=== PATIENT | male | born 1935 | race Caucasian/White ===

== ENCOUNTER 2018-09-07 04:44 | Emergency (ER) | payer MEDICARE ==
[~2018-09-07] VITALS: Ht 170.2 cm; Wt 90.7 kg
[~2018-09-07 04:44] MED LIST: ASPIR 8181 MG PO; BRILINTA90 MG PO; CARVEDILOL12.5 MG PO; CARVEDILOL3.125 MG PO; COLACE100 MG PO; LIPITOR 20 MG T20 M1 PO; LISINOPRIL20 MG PO; NITROSTAT0.4 M1 SUBLING; PLAVIX 75 MG TA75 MG PO; PRILOSEC OTC20 MG PO; PRINIVIL10 MG PO
[2018-09-07] MEDS ORDERED: FLEXERIL PO (05:13)
[2018-09-07] MEDS ORDERED: NORCO 5-325 TA1 EAC1 PO (05:13)
[2018-09-07 06:22] VITALS: BP 147/66
--- NOTE | 2018-09-08 10:51 | EKG ---
[place] [address] ELECTROCARDIOGRAM REPORT Name: REGIS HAJI [id number] Admission: 09/07/18 Attend Phys: Discharge: 09/07/18 Date of : 37 Report #: [id number] THIS REPORT FOR: //name// [facility] ED Test Date: 2018-09-07 Test Time: 05:00:08 Pat Name: REGIS HAJI Department: Room: Gender: M Associate Business Analyst: [place] : 1935 Requested By: Bolivar Victoria Order Number: [id number] MD: Juan Jose Palomino Measurements Intervals [place] Rate: 70 P: 45 MD: 186 QRS: -7 QRSD: 95 T: -22 QT: 373 QTc: 403 Interpretive Statements Sinus rhythm Inferior infarct, age indeterminate Compared to ECG 09/02/2018 07:52:16 No significant changes Electronically Signed On 09-08-2018 10:51:03 CDT by Juan Jose Palomino [email or web address] <ELECTRONICALLY SIGNED> By: Juan Jose Palomino MD, [facility] 09/08/18 1051 0500 0500 Juan Jose Palomino MD, FACC /EPI
== END 2018-09-07 06:24 | disposition home or self-care (01) ==
LOC: M.ERS 04:44
DX: M43.6 Torticollis (principal); I10 Essential (primary) hypertension; E78.00 Pure hypercholesterolemia, unspecified; Z95.5 Presence of coronary angioplasty implant and graft

== ENCOUNTER → 2018-09-09 | Outpatient (CLI) | payer MEDICARE ==
[~2018-09-09] MED LIST changes: +FLEXERIL PO; +NORCO 5-325 TA1 EAC1 PO
== END ==
LOC: M.RAD 12:52
DX: M47.812 Spondylosis without myelopathy or radiculopathy, cervical region (principal); M43.12 Spondylolisthesis, cervical region

== ENCOUNTER → 2018-09-18 | Outpatient (CLI) | payer MEDICARE | LOC: M.MRI 16:37 | DX: M50.121 Cervical disc disorder at C4-C5 level with radiculopathy (principal); M47.22 Other spondylosis with radiculopathy, cervical region; M48.02 Spinal stenosis, cervical region; M43.12 Spondylolisthesis, cervical region; Z79.82 Long term (current) use of aspirin; Z79.899 Other long term (current) drug therapy ==

== ENCOUNTER → 2018-10-20 | Outpatient (CLI) | payer MEDICARE ==
[~2018-10-20] MED LIST changes: +PLAVIX 75 MG TA75 M1 PO; +ZANAFLEX4 MG PO
== END ==
LOC: M.PC 00:14
DX: M43.12 Spondylolisthesis, cervical region (principal); M48.02 Spinal stenosis, cervical region; M25.519 Pain in unspecified shoulder

== ENCOUNTER → 2019-03-18 | Outpatient (CLI) | payer MEDICARE ==
--- NOTE | 2019-03-18 17:57 | CARDNUC ---
[place] [address] CARDIAC NUCLEAR IMAGING REPORT Name: REGIS HAJI Room: [facility]#: [id number] Admission: 03/18/19 Attend Phys: Chandu Coburn Discharge: Date of : 37 Date of Service: 03/18/19 1756 Report #: [id number] THIS REPORT FOR: //name// APPROVED REPORT Study performed: 03/18/2019 14:21:02 Exam: Nuclear Stress Test Indication: s/p stent Patient Location: Out-Patient Stress Tech: Poonam Rao Stress Nurse: Diana Turner RN NM Tech:HOLDEN Christianson Ht: 5 ft 7 in Wt: 196 lbs BSA: 2.00 m2 BMI: 30.69 Medical History Medical History: mi, cad, hyperlipidemia, hypertension Medications: asa-81, atorvastatin, carvedilol, lisinopril, brilinta Allergies: levofloxacin Cardiac Risk Factors: Age, FHX of CAD, HTN, Hyperlipidemia, Tobacco History (Former) Previous Cardiac Procedures: pci Exercise History: Physically active Meds Held (24 hrs): carvedilol Stress Test Details Stress Test: Pharmacologic stress testing performed using 0.4 mg of regadenoson per 5 mL given IV over 10 seconds. HR Resting HR: 70 bpm Max Heart Rate (APMHR): 138 bpm Max HR Achieved: 94 bpm Target HR (85% APMHR): 117 bpm % of APMHR: 68 Recovery HR: 90 bpm BP Resting BP: 157/91 mmHg Max BP: 170/85 mmHg ECG Resting ECG: Sinus Rhythm, nons[place] [address] CARDIAC NUCLEAR IMAGING REPORT Name: REGIS HAJI Room: [facility]#: [id number] Admission: 03/18/19 Attend Phys: Chandu Coburn Discharge: Date of : 37 Date of Service: 03/18/19 1756 Report #: [id number] Stress ECG: Sinus Rhythm, nonspecific ST-T abnormalities ST Change: None Arrhythmia: VPC's Recovery ECG: Sinus Rhythm, nonspecific ST-T abnormalities Recovery ST Change: None Recovery Arrhythmia: VPC's Clinical Reason for Termination: Completed protocol Exercise duration: 0 min sec Exercise capacity: 1 METs The patient tolerated Lexiscan infusion without significant cardiac symptoms. Stress ECG Conclusion The baseline 12-lead EKG shows sinus rhythm with nonspecific ST segment depression and T-wave inversion. There were frequent premature ventricular contractions. EKGs obtained during and post Lexiscan infusion show sinus rhythm with continued nonspecific ST segment and T-wave abnormalities as well as continued (premature ventricular contractions. NM EXAM: Myocardial Perfusion REST/STRESS Imaging Protocol: Rest Tc-99m/Stress Tc-99m 1 day Resting Data Rest SPECT myocardial perfusion imaging was performed in supine position 30 minutes following the intravenous injection of 10.7 mCi of Tc-99m Sestamibi. Time of rest injection: 1305 Date: 03/18/2019 The images were gated to evaluate regional wall motion and calculate left ventricular ejection fraction. Administration Route: IV Administration Site: Right AC Pharmacologic Stress Pharmacologic stress test was performed by injecting Regadenoson 0.4 mg IV push followed by the intravenous injection of 35.0 mCi of Tc-99m Sestamibi. Time of stress injection: 1415 Date: 03/18/2019 Administration Route: IV Administration Site: Right AC Gated Stress SPECT was performed 40 minutes after stress injection. The images were gated to evaluate regional [place] [address] CARDIAC NUCLEAR IMAGING REPORT Name: REGIS HAJI Room: [facility]#: [id number] Admission: 03/18/19 Attend Phys: Chandu Coburn Discharge: Date of : 37 Date of Service: 03/18/19 1756 Report #: [id number] left ventricular ejection fraction. Prone imaging was performed. Study Quality Study: Good Artifact: Mild Diaphragmatic artifact Study Data At rest, the left ventricular ejection fraction was 64%.. Post stress, the left ventricular ejection was 80%.. TID = 1.00. Perfusion Perfusion images obtained in the supine position some photopenia involving the inferior wall that resolved with post stress prone imaging suggesting diaphragmatic attenuation artifact. No other significant fixed or reversible defects were identified. Wall Motion Normal left ventricular wall motion. Nuclear Conclusion ECG Findings: negative for ischemia Clinical Findings: negative for ischemia Nuclear Findings: negative for ischemia Exercise Capacity: not assessed Left Ventricular Function: normal Risk Study: low Myocardial perfusion images showed no defect to suggest infarct or ischemia. Global LV systolic function is normal on repeat studies. This is a low risk study. <Conclusion> The baseline 12-lead EKG shows sinus rhythm with nonspecific ST segment depression and T-wave inversion. There were frequent premature ventricular contractions. EKGs obtained during and post Lexiscan infusion show sinus rhythm with continued nonspecific ST segment and T-wave abnormalities as well as continued (premature ventricular contractions. <ELECTRONICALLY SIGNED> By: Jr Cavazos MD, FACC 03/18/191755 55 55 Jr Cavazos MD, FACC /INF
== END ==
LOC: M.NUC 12-01 17:37
DX: I25.10 Atherosclerotic heart disease of native coronary artery without angina pectoris (principal); I25.2 Old myocardial infarction; E78.5 Hyperlipidemia, unspecified; I10 Essential (primary) hypertension; Z95.5 Presence of coronary angioplasty implant and graft; Z79.82 Long term (current) use of aspirin; Z79.899 Other long term (current) drug therapy

== ENCOUNTER → 2019-08-18 | Outpatient (CLI) | payer MEDICARE ==
--- NOTE | 2019-08-18 14:41 | 2DMMODE ---
[place] [address] 2 D/M-MODE ECHOCARDIOGRAM Name: RAISSAREGIS Demetris Room: [facility].#: [id number] Admission: 08/18/19 Attend Phys: Chandu Coburn Discharge: Date of : 37 Date of Service: 08/18/19 1440 Report #: [id number] THIS REPORT FOR: cc: Domingo Baum Vincent R. DO Blick,Juan Jose Cm MD [facility] ~ APPROVED REPORT Study performed: 08/18/2019 13:36:30 EXAM: Comprehensive 2D, Doppler, and color-flow Echocardiogram Patient Location: Out-Patient BSA: 2.02 HR: 63 bpm BP: 142/78 mmHg Other Information Study Quality: Fair Indications CAD Hypertension/HDD 2D Dimensions IVSd: 11.25 (7-11mm) LVOT Diam: 19.62 (18-24mm) LVDd: 43.29 mm PWd: 9.77 (7-11mm) Ascending Ao: 26.03 (22-36mm) LVDs: 23.98 (25-40mm) Aortic Root: 24.61 mm Volumes Left Atrial Volume (Systole) LA ESV Index: 16.30 mL/m2 Aortic Valve AoV Peak Chauncey.: 1.41 m/s AO Peak Gr.: 7.97 mmHg LVOT Max P.64 mmHg AO Mean Gr.: 4.66 mmHg LVOT Mean P.30 mmHg LVOT Max V: 1.08 m/s AO V2 VTI: 34.32 cm LVOT Mean V: 0.69 m/s DARYL (VTI): 2.25 cm2 LVOT V1 VTI: 25.58 [place] [address] 2 D/M-MODE ECHOCARDIOGRAM Name: REGIS HAJI Room: [facility]#: [id number] Admission: 08/18/19 Attend Phys: Chandu Coburn Discharge: Date of : 37 Date of Service: 08/18/19 1440 Report #: [id number] E/A Ratio: 0.70 MV Decel. Time: 213.41 ms MV E Max Chauncey.: 0.66 m/s MV PHT: 61.89 ms MVA (PHT): 3.55 cm2 TDI E/Lateral E': 6.60 E/Medial E': 6.60 Medial E' Chauncey.: 0.10 m/s Lateral E' Chauncey.: 0.10 m/s Pulmonary Valve PV Peak Chauncey.: 0.92 m/s PV Peak Gr.: 3.36 mmHg Left Ventricle The left ventricle is normal size. There is normal LV segmental wall motion. There is normal left ventricular wall thickness. Left ventricular systolic function is normal. The left ventricular ejection fraction is within the normal range. LVEF is 55-60%. Grade I - abnormal relaxation pattern. Right Ventricle The right ventricle is normal size. The right ventricular systolic function is normal. Atria The left atrium size is normal. The right atrium size is normal. Aortic Valve The aortic valve is normal in structure. No aortic regurgitation is present. There is no aortic valvular stenosis. Mitral Valve The mitral valve is normal in structure. There is trace mitral valve regurgitation noted. No evidence of mitral valve stenosis. Tricuspid Valve The tricuspid valve is normal in structure. There is no tricuspid valve regurgitation noted. Pulmonic Valve Pulmonic valve is not well visualized. There is no pulmonic valvular regurgitation[place] [address] 2 D/M-MODE ECHOCARDIOGRAM Name: REGIS HAJI Room: [facility]#: [id number] Admission: 08/18/19 Attend Phys: Chandu Coburn Discharge: Date of : 37 Date of Service: 08/18/19 1440 Report #: [id number] The aortic root is normal in size. IVC is normal in size and collapses >50% with inspiration. Pericardium There is no pericardial effusion. <Conclusion> Left ventricular systolic function is normal. The left ventricular ejection fraction is within the normal range. <ELECTRONICALLY SIGNED> By: Juan Jose Palomino MD, [facility] 08/18/19 1440 1440 1440 Juan Jose Palomino MD, [facility] /INF
== END ==
LOC: M.CRD 13:18
PROVIDERS: ATTEND Internal Medicine
DX: I25.10 Atherosclerotic heart disease of native coronary artery without angina pectoris (principal); I10 Essential (primary) hypertension